=== PATIENT | female | born 1985 | race Caucasian/White ===

== ENCOUNTER 2018-06-30 21:54 | Inpatient (IN) ==
[2018-06-30 22:16] LABS: Basophils # 0.1 K/mcL (0.0-0.2); Basophils % 0.5 %; Eosinophils # 0.1 K/mcL (0.0-0.6); Eosinophils % 0.9 %; Hematocrit 43.3 % (35.3-44.9); Hemoglobin 14.5 g/dL (11.5-15.4); Immature Granulocytes % 0.8 % (0-4); Lymphocytes # 3.7 K/mcL (0.6-4.6); Mean Corpuscular HGB Conc 33.5 g/dL (31.6-35.5); Mean Corpuscular Hemoglobin 31.1 pg (28.0-33.3); Mean Corpuscular Volume 92.9 fL (83.0-100.0); Mean Platelet Volume 9.1 fL (9.4-12.4); Monocytes # 1.6 K/mcL (0.0-1.3); Monocytes % 10.9 %; Neutrophils # 8.7 K/mcL (1.6-8.9); Platelet Count 313 K/mcL (140-400); Red Blood Count 4.66 M/mcL (3.82-4.97); Segmented Neutrophils % 60.9 %
[2018-06-30 22:41] LABS: Acetaminophen < 10 mcg/mL (10-20); BUN/Creatinine Ratio 8 (6-26); Blood Urea Nitrogen 7 mg/dL (6-20); Calcium 9.6 mg/dL (8.6-10.3); Carbon Dioxide 23 mEq/L (23-29); Chloride 106 mEq/L (98-107); Ethanol < 10 mg/dL (Less than 10); Glucose 122 mg/dL (70-105); Osmolality,Calculated 283 (280-300); Potassium 3.4 mEq/L (3.5-5.1); Salicylate < 2.5 mg/dL (15.0-30.0); Sodium 137 mEq/L (136-145); eGFR For Non-African Americans > 60 (> 60)
[2018-06-30] MEDS ORDERED: *HR* LORazepam 2 MG/ML VIAL IM ONE (22:41)
[2018-06-30] MEDS ORDERED: Ziprasidone injection 20 MG/ML VIAL IM ONE ×2 (22:41→22:42)
[2018-06-30] MEDS ORDERED: *HR* LORazepam 2 MG/ML VIAL ONE (22:42)
[2018-06-30] MEDS ORDERED: Water for inj. (sterile) 10 ML IV ONE (22:43)
--- NOTE | 2018-06-30 22:47 | Emergency Department Note ---
Disposition Clinical Impression: Acute psychosis Disposition: Still a Patient Referrals: NONE,PCP [Primary Care Provider] - Time of Disposition: 22:47 General Adult HPI - General Stated complaint: psych Time Seen by Provider: 06/30/18 21:58 - History of Present Illness HPI Narrative: ED ATTESTATION NOTE: I examined this patient and my medical decision-making was reviewed with the Resident Physician/INDUSTRIAL ROOFER HELPER/PA/Student. I have personally performed a face to face evaluation on this patient & I agree with the documented findings, disposition and treatment plan as described except to the extent set forth below. Patient was seen with emergency medicine resident Mahesh Mcduffie please see copy of her note for details of this encounter Briefly: 33-year-old female by EMS for psychotic activities pressured speech aggressive outbursts flights of ideas. Patient was screaming obscenities out loud in the emergency department saying that she is running for Pres. We tried to interview patient became very agitated. Patient will be getting IM Geodon, Benadryl and Ativan. Patient will then undergo medical clearance. Patient has been pink slip. Patient will then be evaluated by mental health services. Disposition pending. Medical Decision Making - Lab Data Result diagrams: 06/30/18 22:05 06/30/18 22:05 Lab Results 06/30/18 06/30/18 Range/Units 22:05 22:05 WBC 14.3 H (4.3-11.1) K/mcL RBC 4.66 (3.82-4.97) M/mcL Hgb 14.5 (11.5-15.4) g/dL Hct 43.3 (35.3-44.9) % MCV 92.9 (83.0-100.0) fL MCH 31.1 (28.0-33.3) pg MCHC 33.5 (31.6-35.5) g/dL RDW 14.0 (11.5-14.5) % Plt Count 313 (140-400) K/mcL MPV 9.1 L (9.4-12.4) fL Immature Gran % 0.8 (0-4) % Seg Neutrophils % 60.9 % Lymphocytes % 26.0 % Monocytes % 10.9 % Eosinophils % 0.9 % Basophils % 0.5 % Neutrophils # 8.7 (1.6-8.9) K/mcL Lymphocytes # 3.7 (0.6-4.6) K/mcL Monocytes # 1.6 H (0.0-1.3) K/mcL Eosinophils # 0.1 (0.0-0.6) K/mcL Basophils # 0.1 (0.0-0.2) K/mcL Sodium 137 (136-145) mEq/L Potassium 3.4 L (3.5-5.1) mEq/L Chloride 106 (98-107) mEq/L Carbon Dioxide 23 (23-29) mEq/L BUN 7 (6-20) mg/dL Creatinine 0.87 (0.60-1.20) mg/dL Est GFR ( Amer) > 60 (> 60) Est GFR (Non-Af Amer) > 60 (> 60) BUN/Creatinine Ratio 8 (6-26) Glucose 122 H (70-105) mg/dL Calculated Osmolality 283 (280-300) Calcium 9.6 (8.6-10.3) mg/dL Salicylates < 2.5 L (15.0-30.0) mg/dL Acetaminophen < 10 L (10-20) mcg/mL Ethyl Alcohol < 10 (Less than 10) mg/dL
--- NOTE | 2018-06-30 22:49 | Emergency Department Note ---
Disposition Clinical Impression: Acute psychosis Disposition: Still a Patient Condition: Fair Referrals: NONE,PCP [Primary Care Provider] - Forms: ED Satisfaction Letter Psych HPI - General Chief Complaint: ED Psychiatric Symptoms Stated Complaint: psych Time Seen by Provider: 06/30/18 21:58 Source: patient Mode of arrival: EMS Limitations: no limitations Nursing Notes Reviewed: Yes Vital Signs Reviewed: Yes - History of Present Illness HPI Narrative: 33-year-old female presented emergency prior for acute psychosis. Patient states she only has PTSD does not take any medications. She comes here stating that she is from [place] here to see her in alf at [facility] where there is was tomorrow. Patient states she is . She also says that she is running for present. Patient states she does not hurt anywhere. She just came here as she needs help as she was lost. Otherwise no complaints. No suicidal or homicidal ideations. No weapons at home All systems ED: reviewed and negative except as stated. Review of Systems: As Per HPI Constitutional: Denies: fever, chills, weakness, weight change Eyes: Denies: eye pain, eye discharge, vision change ENT ED: Denies: ear pain, throat pain, dental pain, hearing loss, epistaxis, congestion, dysphagia Cardiovascular: Denies: chest pain, palpitations, dyspnea on exertion, edema, syncope Respiratory: Denies: cough, dyspnea, wheezes, hemoptysis, stridor Gastrointestinal: Denies: abdominal pain, nausea, vomiting, diarrhea, constipation, hematemesis, melena, hematochezia Genitourinary: Denies: dysuria, frequency, hematuria, discharge Musculoskeletal: Denies: back pain, neck pain, arthralgia, myalgia Integumentary: Denies: rash, abrasion, lesions Neurological: Denies: headache, weakness, numbness, paresthesias, confusion, abnormal gait, vertigo Psychiatric: Reports: anxiety. Denies: depression, suicidal thoughts, homicidal thoughts, auditory hallucinations, visual hallucinations Endocrine: Denies: fatigue Hematological/Lymphatic: Denies: easy bleeding, easy bruising Past Medical History - Past Medical History Attestation: Yes The following information was validated with the patient. Source: patient Physical Exam - General Limitations: no limitations General appearance: alert, in no apparent distress - Head Head exam: atraumatic, normocephalic, normal inspection - Eye Eye exam: Present: normal appearance, PERRL, EOMI - ENT ENT exam: normal exam, normal oropharynx, mucous membranes moist - Neck Neck exam: Present: normal inspection, full ROM, trachea midline - Chest Chest inspection: Present: normal inspection, symmetric chest wall rise - Respiratory Respiratory exam: Present: normal lung sounds bilaterally - Cardiovascular Cardiovascular exam: Present: regular rate, normal rhythm, normal heart sounds - Abdominal Exam Abdominal exam: Present: soft, Non-Tender, normal bowel sounds. Absent: tenderness, distention, guarding, rebound, rigidity - Extremities Exam Extremities exam: Present: normal inspection, full ROM. Absent: tenderness, pedal edema - Expanded Lower Extremity Exam Neurovascular/Tendon exam: Present: normal capillary refill. Absent: pulse deficit, motor deficit, sensory deficit, tendon deficit - Neurological Exam Neurological exam: Present: alert, oriented X3 - Skin Skin exam: Present: warm, dry, intact, normal color Course Course Narrative: We will do basic psychotic workup including CBC, BMP, urinalysis, urine , urine drug screen, acetaminophen, salicylates. We will give patient by mouth Haldol. - Reevaluation(s) Reevaluation #1: When he went to go see the patient and interview her more. The patient became very combative and was yelling and screaming so we medically sedated the patient with 20 mg Haldol 4 mg Ativan and 50 mg Benadryl intramuscularly. This is due to patient being uncooperative. As she was restrained to the bed. Time: 22:53 Vital Signs Temperature 98.1 F 06/30/18 23:30 Pulse Rate 77 06/30/18 23:30 Respiratory Rate 14 06/30/18 23:30 Blood Pressure 91/58 06/30/18 23:30 O2 Sat by Pulse Oximetry 97 06/30/18 23:30 Temperature 98.1 F 06/30/18 23:30 Pulse Rate 77 06/30/18 23:30 Respiratory Rate 14 06/30/18 23:30 Blood Pressure 91/58 06/30/18 23:30 O2 Sat by Pulse Oximetry 97 06/30/18 23:30 Oxygen Delivery Oxygen Delivery Room Air Psych - MDM Narrative Medical decision making narrative: All patient's labs and urine came back normal. There is no acute findings. Patient has been medically cleared. We will contact psychiatry for evaluation and we await their further recommendations. Patient is stable at this time. Psychiatry did come see the patient said patient was still too sedated to fully evaluate her at this time though return in the morning to follow evaluate her once patient has awoken. This time patient is stable and sleeping. Patient will be signed out to the day team to follow-up with psychiatry's recommendations and plan. - Lab Data Result diagrams: 06/30/18 22:05 06/30/18 22:05 Lab Results 06/30/18 06/30/18 07/01/18 Range/Units 22:05 22:05 00:31 WBC 14.3 H (4.3-11.1) K/mcL RBC 4.66 (3.82-4.97) M/mcL Hgb 14.5 (11.5-15.4) g/dL Hct 43.3 (35.3-44.9) % MCV 92.9 (83.0-100.0) fL MCH 31.1 (28.0-33.3) pg MCHC 33.5 (31.6-35.5) g/dL RDW 14.0 (11.5-14.5) % Plt Count 313 (140-400) K/mcL MPV 9.1 L (9.4-12.4) fL Immature Gran % 0.8 (0-4) % Seg Neutrophils % 60.9 % Lymphocytes % 26.0 % Monocytes % 10.9 % Eosinophils % 0.9 % Basophils % 0.5 % Neutrophils # 8.7 (1.6-8.9) K/mcL Lymphocytes # 3.7 (0.6-4.6) K/mcL Monocytes # 1.6 H (0.0-1.3) K/mcL Eosinophils # 0.1 (0.0-0.6) K/mcL Basophils # 0.1 (0.0-0.2) K/mcL Sodium 137 (136-145) mEq/L Potassium 3.4 L (3.5-5.1) mEq/L Chloride 106 (98-107) mEq/L Carbon Dioxide 23 (23-29) mEq/L BUN 7 (6-20) mg/dL Creatinine 0.87 (0.60-1.20) mg/dL Est GFR ( Amer) > 60 (> 60) Est GFR (Non-Af Amer) > 60 (> 60) BUN/Creatinine Ratio 8 (6-26) Glucose 122 H (70-105) mg/dL Calculated Osmolality 283 (280-300) Calcium 9.6 (8.6-10.3) mg/dL Urine Color Yellow (Yellow) Urine Clarity Clear (Clear) Urine pH 6.0 (5.0-8.0) pH Units Ur Specific [place] 1.009 L (1.010-1.025) Urine Protein Negative (Neg-Trace) mg/dL Urine Glucose (UA) Normal (Normal) mg/dL Urine Ketones Negative (Negative) mg/dL Urine Blood Negative (Negative) Urine Nitrite Negative (Negative) Urine Bilirubin Negative (Negative) Urine Urobilinogen Normal (Normal) mg/dL Ur Leukocyte Esterase Negative (Negative) Urine Test (Negative) Salicylates < 2.5 L (15.0-30.0) mg/dL Urine Opiates Screen (Riaxhn=419) ng/mL Acetaminophen < 10 L (10-20) mcg/mL Ur Barbiturates Screen (Xraubx=467) ng/mL Ur Phencyclidine Scrn (Cutoff=25) ng/mL Ur Amphetamines Screen (Mgppft=7530) ng/mL U Benzodiazepines Scrn (Ewggbv=614) ng/mL Urine Cocaine Screen (Cutoff= 300) ng/mL U Marijuana (THC) Screen (Cutoff = 50) ng/mL Ur Drug Screen Interp Ethyl Alcohol < 10 (Less than 10) mg/dL 07/01/18 07/01/18 Range/Units 00:31 00:31 WBC (4.3-11.1) K/mcL RBC (3.82-4.97) M/mcL Hgb (11.5-15.4) g/dL Hct (35.3-44.9) % MCV (83.0-100.0) fL MCH (28.0-33.3) pg MCHC (31.6-35.5) g/dL RDW (11.5-14.5) % Plt Count (140-400) K/mcL MPV (9.4-12.4) fL Immature Gran % (0-4) % Seg Neutrophils % % Lymphocytes % % Monocytes % % Eosinophils % % Basophils % % Neutrophils # (1.6-8.9) K/mcL Lymphocytes # (0.6-4.6) K/mcL Monocytes # (0.0-1.3) K/mcL Eosinophils # (0.0-0.6) K/mcL Basophils # (0.0-0.2) K/mcL Sodium (136-145) mEq/L Potassium (3.5-5.1) mEq/L Chloride (98-107) mEq/L Carbon Dioxide (23-29) mEq/L BUN (6-20) mg/dL Creatinine (0.60-1.20) mg/dL Est GFR ( Amer) (> 60) Est GFR (Non-Af Amer) (> 60) BUN/Creatinine Ratio (6-26) Glucose (70-105) mg/dL Calculated Osmolality (280-300) Calcium (8.6-10.3) mg/dL Urine Color (Yellow) Urine Clarity (Clear) Urine pH (5.0-8.0) pH Units Ur Specific [place] (1.010-1.025) Urine Protein (Neg-Trace) mg/dL Urine Glucose (UA) (Normal) mg/dL Urine Ketones (Negative) mg/dL Urine Blood (Negative) Urine Nitrite (Negative) Urine Bilirubin (Negative) Urine Urobilinogen (Normal) mg/dL Ur Leukocyte Esterase (Negative) Urine Test Negative (Negative) Salicylates (15.0-30.0) mg/dL Urine Opiates Screen Negative (Zcgwbo=809) ng/mL Acetaminophen (10-20) mcg/mL Ur Barbiturates Screen Negative (Rrgwqk=642) ng/mL Ur Phencyclidine Scrn Negative (Cutoff=25) ng/mL Ur Amphetamines Screen Negative (Qqzfbd=3886) ng/mL U Benzodiazepines Scrn Negative (Qncxfa=141) ng/mL Urine Cocaine Screen Negative (Cutoff= 300) ng/mL U Marijuana (THC) Screen Positive H (Cutoff = 50) ng/mL Ur Drug Screen Interp See Below Ethyl Alcohol (Less than 10) mg/dL Psychiatric Medical Clearance - Medical Clearance Checklist Medical History: No Social History Section defined Current Vitals: Last Vital Signs Temp 98.1 F 06/30/18 23:30 Pulse 77 06/30/18 23:30 Resp 14 06/30/18 23:30 BP 91/58 06/30/18 23:30 Pulse Ox 97 09/22/18 23:30 Psychiatric Lab Panel: Drug Levels and Toxicity 06/30/18 07/01/18 22:05 00:31 Urine Opiates Screen Negative Acetaminophen < 10 L Ur Barbiturates Screen Negative Ur Phencyclidine Scrn Negative Ur Amphetamines Screen Negative U Benzodiazepines Scrn Negative Urine Cocaine Screen Negative U Marijuana (THC) Screen Positive H Ethyl Alcohol < 10 Abnormal Labs: Abnormal lab results WBC 14.3 K/mcL (4.3-11.1) H 06/30/18 22:05 MPV 9.1 fL (9.4-12.4) L 06/30/18 22:05 Monocytes # 1.6 K/mcL (0.0-1.3) H 06/30/18 22:05 Potassium 3.4 mEq/L (3.5-5.1) L 06/30/18 22:05 Glucose 122 mg/dL (70-105) H 06/30/18 22:05 Ur Specific [place] 1.009 (1.010-1.025) L 07/01/18 00:31 Salicylates < 2.5 mg/dL (15.0-30.0) L 06/30/18 22:05 Acetaminophen < 10 mcg/mL (10-20) L 06/30/18 22:05 U Marijuana (THC) Screen Positive ng/mL (Cutoff = 50) H 07/01/18 00:31 Statement of Medical Clearance: I have evaluated the patient, reviewed diagnostic information, and certify that the patient's medical condition is sufficiently stable that transfer to the psychiatric unit does not pose a significant risk of deterioration.
[2018-06-30] MEDS: Ziprasidone 20 MG CAPSULE PO SCH (22:55)
[2018-07-01 00:41] LABS: Bilirubin,Urine Negative (Negative); Blood,Urine Negative (Negative); Clarity,Urine Clear (Clear); Color,Urine Yellow (Yellow); Glucose,Urine (UA) Normal (Normal); Ketones,Urine Negative (Negative); Leukocyte Esterase,Urine Negative (Negative); Nitrite,Urine Negative (Negative); Protein,Urine Negative (Neg-Trace); Specific Gravity,Urine 1.009 (1.010-1.025); Urobilinogen,Urine Normal (Normal)
[2018-07-01 00:51] LABS: Amphetamine Screen,Urine Negative ng/mL (Cutoff=1000); Barbiturate Screen,Urine Negative ng/mL (Cutoff=200); Benzodiazepines Screen,Urine Negative ng/mL (Cutoff=200); Cannabinoid Screen,Urine Positive ng/mL (Cutoff = 50); Cocaine Screen,Urine Negative ng/mL (Cutoff= 300); Opiate Screen,Urine Negative ng/mL (Cutoff=300); Phencyclidine Screen,Urine Negative ng/mL (Cutoff=25)
--- NOTE | 2018-07-01 07:17 | Emergency Department Note ---
Disposition Clinical Impression: Acute psychosis Disposition: Still a Patient Condition: Fair Referrals: NONE,PCP [Primary Care Provider] - Forms: ED Satisfaction Letter General Adult HPI - General Chief complaint: ED Psychiatric Symptoms Stated complaint: psych Time Seen by Provider: 06/30/18 21:58 Source: patient Mode of arrival: EMS Limitations: no limitations - History of Present Illness Pain Scale: 0 Constitutional: Denies: fever, chills, weakness, weight change Eyes: Denies: eye pain, eye discharge, vision change ENT ED: Denies: ear pain, throat pain, dental pain, hearing loss, epistaxis, congestion, dysphagia Cardiovascular: Denies: chest pain, palpitations, dyspnea on exertion, edema, syncope Respiratory: Denies: cough, dyspnea, wheezes, hemoptysis, stridor Gastrointestinal: Denies: abdominal pain, nausea, vomiting, diarrhea, constipation, hematemesis, melena, hematochezia Genitourinary: Denies: dysuria, frequency, hematuria, discharge Musculoskeletal: Denies: back pain, neck pain, arthralgia, myalgia Integumentary: Denies: rash, abrasion, lesions Neurological: Denies: headache, weakness, numbness, paresthesias, confusion, abnormal gait, vertigo Psychiatric: Reports: anxiety. Denies: depression, suicidal thoughts, homicidal thoughts, auditory hallucinations, visual hallucinations Endocrine: Denies: fatigue Hematological/Lymphatic: Denies: easy bleeding, easy bruising Past Medical History - Past Medical History Medical history: Reports: non-contributory, other Psychiatric history: Reports: previous psychiatric hospitalization, other - Social History Smoking Status: Unknown if ever smoked Alcohol use: Reports: unknown Drug use: Reports: none Physical Exam - General Limitations: no limitations General appearance: alert, in no apparent distress Course Course Narrative: accepted sign out from Dr. Fisher and Froy. Patinet has been medically cleared although has been medicated and 1A has attempted to evaluate although not successful due to drowsiness but easily arousable. We will continue to monitor and 1A will return for re-eval. Vital Signs Temperature 98.1 F 06/30/18 23:30 Pulse Rate 77 06/30/18 23:30 Respiratory Rate 14 06/30/18 23:30 Blood Pressure 91/58 06/30/18 23:30 O2 Sat by Pulse Oximetry 97 06/30/18 23:30 Temperature 98.1 F 06/30/18 23:30 Pulse Rate 77 06/30/18 23:30 Respiratory Rate 14 06/30/18 23:30 Blood Pressure 91/58 06/30/18 23:30 O2 Sat by Pulse Oximetry 97 06/30/18 23:30 Oxygen Delivery Oxygen Delivery Room Air Medical Decision Making - Lab Data Result diagrams: 06/30/18 22:05 06/30/18 22:05 Lab Results 06/30/18 06/30/18 07/01/18 Range/Units 22:05 22:05 00:31 WBC 14.3 H (4.3-11.1) K/mcL RBC 4.66 (3.82-4.97) M/mcL Hgb 14.5 (11.5-15.4) g/dL Hct 43.3 (35.3-44.9) % MCV 92.9 (83.0-100.0) fL MCH 31.1 (28.0-33.3) pg MCHC 33.5 (31.6-35.5) g/dL RDW 14.0 (11.5-14.5) % Plt Count 313 (140-400) K/mcL MPV 9.1 L (9.4-12.4) fL Immature Gran % 0.8 (0-4) % Seg Neutrophils % 60.9 % Lymphocytes % 26.0 % Monocytes % 10.9 % Eosinophils % 0.9 % Basophils % 0.5 % Neutrophils # 8.7 (1.6-8.9) K/mcL Lymphocytes # 3.7 (0.6-4.6) K/mcL Monocytes # 1.6 H (0.0-1.3) K/mcL Eosinophils # 0.1 (0.0-0.6) K/mcL Basophils # 0.1 (0.0-0.2) K/mcL Sodium 137 (136-145) mEq/L Potassium 3.4 L (3.5-5.1) mEq/L Chloride 106 (98-107) mEq/L Carbon Dioxide 23 (23-29) mEq/L BUN 7 (6-20) mg/dL Creatinine 0.87 (0.60-1.20) mg/dL Est GFR ( Amer) > 60 (> 60) Est GFR (Non-Af Amer) > 60 (> 60) BUN/Creatinine Ratio 8 (6-26) Glucose 122 H (70-105) mg/dL Calculated Osmolality 283 (280-300) Calcium 9.6 (8.6-10.3) mg/dL Urine Color Yellow (Yellow) Urine Clarity Clear (Clear) Urine pH 6.0 (5.0-8.0) pH Units Ur Specific [place] 1.009 L (1.010-1.025) Urine Protein Negative (Neg-Trace) mg/dL Urine Glucose (UA) Normal (Normal) mg/dL Urine Ketones Negative (Negative) mg/dL Urine Blood Negative (Negative) Urine Nitrite Negative (Negative) Urine Bilirubin Negative (Negative) Urine Urobilinogen Normal (Normal) mg/dL Ur Leukocyte Esterase Negative (Negative) Urine Test (Negative) Salicylates < 2.5 L (15.0-30.0) mg/dL Urine Opiates Screen (Ewjxaw=542) ng/mL Acetaminophen < 10 L (10-20) mcg/mL Ur Barbiturates Screen (Lblidy=024) ng/mL Ur Phencyclidine Scrn (Cutoff=25) ng/mL Ur Amphetamines Screen (Voyqax=9112) ng/mL U Benzodiazepines Scrn (Spbwrt=045) ng/mL Urine Cocaine Screen (Cutoff= 300) ng/mL U Marijuana (THC) Screen (Cutoff = 50) ng/mL Ur Drug Screen Interp Ethyl Alcohol < 10 (Less than 10) mg/dL 07/01/18 07/01/18 Range/Units 00:31 00:31 WBC (4.3-11.1) K/mcL RBC (3.82-4.97) M/mcL Hgb (11.5-15.4) g/dL Hct (35.3-44.9) % MCV (83.0-100.0) fL MCH (28.0-33.3) pg MCHC (31.6-35.5) g/dL RDW (11.5-14.5) % Plt Count (140-400) K/mcL MPV (9.4-12.4) fL Immature Gran % (0-4) % Seg Neutrophils % % Lymphocytes % % Monocytes % % Eosinophils % % Basophils % % Neutrophils # (1.6-8.9) K/mcL Lymphocytes # (0.6-4.6) K/mcL Monocytes # (0.0-1.3) K/mcL Eosinophils # (0.0-0.6) K/mcL Basophils # (0.0-0.2) K/mcL Sodium (136-145) mEq/L Potassium (3.5-5.1) mEq/L Chloride (98-107) mEq/L Carbon Dioxide (23-29) mEq/L BUN (6-20) mg/dL Creatinine (0.60-1.20) mg/dL Est GFR ( Amer) (> 60) Est GFR (Non-Af Amer) (> 60) BUN/Creatinine Ratio (6-26) Glucose (70-105) mg/dL Calculated Osmolality (280-300) Calcium (8.6-10.3) mg/dL Urine Color (Yellow) Urine Clarity (Clear) Urine pH (5.0-8.0) pH Units Ur Specific [place] (1.010-1.025) Urine Protein (Neg-Trace) mg/dL Urine Glucose (UA) (Normal) mg/dL Urine Ketones (Negative) mg/dL Urine Blood (Negative) Urine Nitrite (Negative) Urine Bilirubin (Negative) Urine Urobilinogen (Normal) mg/dL Ur Leukocyte Esterase (Negative) Urine Test Negative (Negative) Salicylates (15.0-30.0) mg/dL Urine Opiates Screen Negative (Rsanhn=348) ng/mL Acetaminophen (10-20) mcg/mL Ur Barbiturates Screen Negative (Aidmas=311) ng/mL Ur Phencyclidine Scrn Negative (Cutoff=25) ng/mL Ur Amphetamines Screen Negative (Vpwfog=0066) ng/mL U Benzodiazepines Scrn Negative (Uvfgxn=302) ng/mL Urine Cocaine Screen Negative (Cutoff= 300) ng/mL U Marijuana (THC) Screen Positive H (Cutoff = 50) ng/mL Ur Drug Screen Interp See Below Ethyl Alcohol (Less than 10) mg/dL
[2018-07-01] MEDS: Ziprasidone 20 MG CAPSULE PO SCH (07:41)
[2018-07-01] MEDS ORDERED: Ziprasidone 20 MG CAPSULE PO ONE (12:22)
[2018-07-01] MEDS ORDERED: *HR* LORazepam 2 MG/ML VIAL IM ONE (13:12)
[2018-07-01] MEDS ORDERED: Ziprasidone injection 20 MG/ML VIAL IM ONE (13:12)
[2018-07-01] MEDS ORDERED: Ibuprofen 400 MG TABLET PO PRN (15:25)
[2018-07-01] MEDS ORDERED: *HR* LORazepam 2 MG/ML VIAL IM PRN (15:25)
[2018-07-01] MEDS ORDERED: *HR* LORazepam 1 MG TABLET PO PRN (15:25)
[2018-07-01] MEDS ORDERED: MOM Conc 10 ML UD.LIQ PO PRN (15:25)
[2018-07-01] MEDS ORDERED: Ziprasidone 20 MG CAPSULE PO PRN (15:27)
[2018-07-01] MEDS ORDERED: Ziprasidone injection 20 MG/ML VIAL IM PRN (15:28)
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
[2018-07-03] MEDS: Mag Hydrox/Al Hydrox/Simeth 30 ML UDC PO PRN (10:01)
--- NOTE | 2018-07-03 10:51 | Psychiatry Progress Note ---
Date of Encounter: 07/03/18 Time of Encounter: 10:00 Subjective Interval history: Patient seen today , case d/w treatment team/as per team patient remains grandiose and had been stating is running for [employer]. medical records were obtained from PCP and she was on poly pharmacy , 3 antidepressants and also on stimulants for ADD , the notes were from 11/26, she refused to give consent for her psychiAtrist and states it was btw her and me , she has therapist. side door worker talked to her father who stated she has 5 inpatient hospitalization in 5 months. he is wanting to be her guardian. Today talked to patient about her records and asked her about her moods , anxiety and her history , she stated she was last admitted in 03/26 and lithium was offered but she will not and will talk her psychiatrist once she is back home, she told me she is working FT , when asked is she on FMLA she said yes and i asked her why she forgot to tell me about F,MLA , stated she was planning to go to work and ended up here. as per her she gets these episodes and when extremely confused is hospitalized. she denies manic episode but she also is denying everything , she states i can run for president , i am women and i have qualifications and i can help people here also , she has poor insight and needs observation for her psychosis. she agreed with plan to start abilify , she has been given risperdal in past but that caused her very drowsy. she agreed with the plan, side effects explained , informed consent obtained. Review of Systems Psychiatric: Reports: anxiety, irritability, panic attacks Results - Vital Signs Vital Signs: Temp Pulse Resp BP Pulse Ox 98.8 F 64 16 136/76 99 07/03/18 09:00 07/03/18 09:00 07/03/18 09:00 07/03/18 09:00 07/01/18 12:06 Assessment and Plan (1) Acute psychosis Current visit: Yes Status: Acute Risks, benefits, side effects, alternatives discussed w/pt: Yes Patient agreeable to treatment: Yes (2) Post traumatic stress disorder (PTSD) Current visit: Yes Status: Chronic Risks, benefits, side effects, alternatives discussed w/pt: Yes Patient agreeable to treatment: Yes (3) Bipolar affective, depress, unspec Current visit: Yes Status: Acute Plan: Continue hospitalization, Close observation, Suicide Precautions per unit protocol, Encourage participation in unit milieu, Group Therapy, Monitor sleep, Monitor appetite, Family/Supportive other meeting Risks, benefits, side effects, alternatives discussed w/pt: Yes Patient agreeable to treatment: Yes Qualifiers: Current episode severity: unspecified Qualified Code(s): F31.30 - Bipolar disorder, current episode depressed, mild or moderate severity, unspecified Consult Discharge Plan - Plan Referrals: , [facility] [Other] - 07/10/18 9:00 am (The above appointment is with Dr. Aliza Morgan for primary healthcare and medication management services.) Psychiatry Exam - Constitutional Vitals: Temp Pulse Resp BP Pulse Ox 98.8 F 64 16 136/76 99 07/03/18 09:00 07/03/18 09:00 07/03/18 09:00 07/03/18 09:00 07/01/18 12:06 General appearance: age & developmentally appropriate, well-groomed, well- nourished - Musculoskeletal Gait: normal Station: relaxed Strength & Tone: normal for patient - Psychiatric Patient Orientation: Yes Person, Yes Time, Yes Place Level of alertness: Alert Behavior: cooperative, guarded Psychomotor activity: Normal Eye Contact: Maintains Eye Contact Mood Description: Anxious Affect description: constricted Speech Volume: Normal Speech pattern: slowed Language & Vocabulary: consistent with education Thought Process: Intact Thought Content: Yes Grandiose delusion Attention Span Ability: Capable of Focused Attention Memory Description: Grossly Intact Patient Reliability: Not Reliable Historian Fund of knowledge: Yes average Intelligence Estimate: Average Judgment: Limited Insight: Minimal
[2018-07-03] MEDS ORDERED: ARIPiprazole 2 MG TABLET PO SCH (21:00)
[2018-07-03] MEDS: hydrOXYzine pamoate 25 MG CAPSULE PO PRN (22:24)
[2018-07-03] MEDS: traZODone 50 MG TABLET PO PRN (22:24)
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
[2018-07-04] MEDS: traZODone 50 MG TABLET PO PRN (20:39)
[2018-07-04] MEDS: hydrOXYzine pamoate 25 MG CAPSULE PO PRN (20:39)
[2018-07-04] MEDS ORDERED: ARIPiprazole 5 MG TABLET PO SCH (21:00)
[2018-07-05 08:48] VITALS: BP 119/84
--- NOTE | 2018-07-05 10:02 | Discharge Summary ---
Date of Encounter: 07/05/18 Time of Encounter: 09:40 Diagnosis - Discharge Diagnosis (1) Acute psychosis Status: Resolved Comments: Patient not psychotic and has bee baseline. (2) Post traumatic stress disorder (PTSD) Status: Chronic (3) Bipolar affective, depress, unspec Status: Acute Comments: patient stable on medications, denied side effects. Qualifiers: Current episode severity: unspecified Qualified Code(s): F31.30 - Bipolar disorder, current episode depressed, mild or moderate severity, unspecified Medications - Discharge Medications Prescriptions: ARIPiprazole [Abilify] 5 mg PO HS #30 tablet Escitalopram [Lexapro] 20 mg PO DAILY #30 tablet ARIPiprazole [Abilify] 5 mg PO HS #30 tablet 07/05/18 [Rx] Escitalopram [Lexapro] 20 mg PO DAILY #30 tablet 07/05/18 [Rx] 3 Allergy/AdvReac Type Severity Reaction Status Date / Time No Known Allergies Allergy Verified 07/01/18 08:23 Provider Date of admission: 07/01/18 15:15 Primary care physician: PCP NONE Psychiatry Exam - Constitutional Vitals: Temp Pulse Resp BP Pulse Ox 98.2 F 65 18 119/84 99 07/05/18 08:47 07/05/18 08:47 07/05/18 08:47 07/05/18 08:47 07/01/18 12:06 General appearance: age & developmentally appropriate, well-groomed, well- nourished - Musculoskeletal Gait: normal Station: relaxed Strength & Tone: normal for patient - Psychiatric Patient Orientation: Yes Person, Yes Time, Yes Place Level of alertness: Alert Behavior: calm, cooperative Psychomotor activity: Normal Eye Contact: Maintains Eye Contact Mood Description: Euthymic/stable Affect description: congruent with mood, full range Speech Volume: Normal Speech pattern: normal rate, normal rhythm, normal tone, fluent, spontaneous Language & Vocabulary: consistent with education Thought Process: Linear, Goal Oriented Thought Content: No Suicidal ideation, No Homicidal ideation, No Overt delusions Perceptual Disturbances: No Auditory hallucinations, No Visual hallucinations Attention Span Ability: Capable of Focused Attention Memory Description: Grossly Intact Patient Reliability: Reliable Historian Fund of knowledge: Yes abstraction ability, Yes aware of current events Intelligence Estimate: Average Judgment: Good Insight: Partial Hospital Course Hospital course: Ms. Tafoya is a 33 year old female was admitted from ED for acute psychosis and has h/o psychiatric illness and treatment , she was dx with Bipolar, PTSD, and has been denying her bipolar, she was given counselling , education and brief intervention and supportive counselling given , she attended groups and unit milieu. she agreed to take abilify and continued her lexapro. sh e gained insight and agreed to be compliant and denied side effects. she has no substance abuse. at present not suicidal/homicidal , no psychosis and denies any depressive s/s. Time spent discussing smoking cessation with patient: 3 to 10 minutes Does patient wish to continue nicotine replacement upon disc: No (trying to quit , she did not used any patches in hospital , wants to quit .) - Time Spent with Patient Total time spent providing and/or coordinating discharge services: Greater than 30 minutes Assessment and Plan - Patient/Caregiver Discharge Instructions Activity: resume usual activities as tolerated Diet: regular diet - Follow up Plan Follow up with: [facility] [Other] - 07/10/18 9:15 am (The above appointment is with Dr. Aliza Morgan for primary healthcare and medication management services.) [facility] [Other] (Patient indicates she will contact her therapist, Erma Case, on her own to schedule her next appointment.) Functional capacity at discharge: independent ambulation Overall status at discharge: Stable Disposition: Home, Self-Care Quality - Multiple Antipsychotics Patient discharged on 2 or more antipsychotic medications: No Procedures - Procedures Procedures: Medication Management, Crisis Stabilization, Supportive Therapy, Group Therapy, Psychoeducational Therapy
[2018-07-05] MEDS: Mag Hydrox/Al Hydrox/Simeth 30 ML UDC PO PRN (11:18)
== END 2018-07-05 11:55 | disposition home or self-care (01) | DRG 885 ==
LOC: EMEROOARM 21:54 → 1ANU 07-01 15:15 → SUATTDRO 07-01 15:15 → 1ANU 07-01 15:48
PROVIDERS: ADMIT Internal Medicine; ATTEND Psychiatry & Neurology Psychiatry